=== PATIENT | female | born 1995 | race Caucasian/White ===

== ENCOUNTER → 2021-01-25 | Outpatient (CLI) | payer BC ==
--- NOTE | 2021-01-25 17:26 | US ---
EXAMINATION TYPE: Transabdominal DATE OF EXAM: 01/25/2021 3:04 PM COMPARISON: NONE CLINICAL HISTORY: Z36 confirm dates. Dates EXAM PERFORMED: Transabdominal (TA) EXAM MEASUREMENTS: GESTATIONAL AGE / DATING Physician Established: Not yet established Dates by LMP: (10 weeks/4 days) EDC: 08/19/2021 Dates by First Scan: No previous this is first scan Dates by Current Scan for: (11 weeks/1 days) EDC: 08/15/2021 MATERNAL ANATOMY Uterus: 12.1 x 7.7 x 4.8 cm Right Ovary: 2.9 x 1.6 x 1.4 cm Left Ovary: 2.9 x 1.5 x 1.5 cm Post CDS / Adnexa: no free fluid Presence of free fluid: no Presence of corpus luteal cyst: no Presence of subchorionic bleed: no GESTATION / SURVEY CRL: 4.2 cm (11 weeks/1 days) MSD: seen, not measured Yolk Sac (normal less than 6mm): not visualized Heart Rate: 172 bpm Rhythm: Normal IUP: Viable IUP Date of LMP: 11/12/2020 Beta HcG (if available): Not available at this time Live IUP measuring 11 weeks 1 day. IMPRESSION: Single intrauterine with an average ultrasound gestational age of 11 weeks and 1 day. Last menstrual period gestational age is 10 weeks and 4 days crown-rump length is 4.2 cm. heart rate is 172 bpm.
== END | disposition home or self-care (01) ==
LOC: RADUSWWP 14:44
PROVIDERS: ATTEND Obstetrics & Gynecology
DX: Z36.87 Encounter for antenatal screening for uncertain dates (principal)
CPT/HCPCS: 76801

== ENCOUNTER → 2022-06-12 | Outpatient (CLI) | payer BC ==
--- NOTE | 2022-06-12 15:07 | US ---
EXAMINATION TYPE: US thyroid st tissue head/neck DATE OF EXAM: 06/12/2022 COMPARISON: NONE CLINICAL HISTORY: E010. thyromegaly GLAND SIZE: Right Lobe: 5.6 x 2.0 x 2.4 cm Overall Parenchyma: heterogenous Left Lobe: 4.7 x1.5 x 1.8 cm Overall Parenchyma: heterogeneous Isthmus Thickness: 0.4 cm NODULES RIGHT: # of nodules measured on right: 1 1. 0.8 X 0.6 x 0.8 cm, lower , solid or almost completely solid, hyperechoic nodule, which is wider than tall, with smooth margins, without echogenic foci. Prior size: no prior LEFT: # of nodules measured on left: 0 ISTHMUS: # of nodules measured in the isthmus: 0 Bilateral neck scanned, no evidence of lymphadenopathy. IMPRESSION: 1. Thyromegaly correlate for thyroiditis. Single subcentimeter right thyroid nodule. 2017 ACR TI-RADS LEVEL: TR-RADS 3 - Mildly Suspicious: Follow if > 1.5 cm, FNA if > 2.5 cm *Highest TI-RADS level nodule reported
[2022-06-12 18:55] LABS: Basophils # (A) 0.05 X 10*3/uL (0.00-0.10); Basophils % (A) 0.6 %; Eosinophils # (A) 0.41 X 10*3/uL (0.04-0.35); Eosinophils % (A) 4.6 %; HCT 41.5 % (37.2-46.3); HGB 12.7 g/dL (12.0-15.0); Immature Grans, Automated 0.3 %; Lymphocytes # (A) 3.08 X 10*3/uL (0.90-5.00); Lymphocytes % (A) 34.6 %; MCHC 30.6 g/dL (32.0-37.0); MCV 81.9 fL (80.0-97.0); Mean Platelet Volume 10.7 fL (9.5-12.2); Monocytes % (A) 7.9 %; NRBC Per 100 WBC 0 /100 WBCS (0.0-0.0); Neutrophils # (A) 4.64 X 10*3/uL (1.80-7.70); Platelet Count 385 X 10*3/uL (140-440); RBC 5.07 X 10*6/uL (4.10-5.20); RDW 14.7 % (11.5-14.5); WBC 8.91 X 10*3/uL (4.50-10.00)
[2022-06-12 19:04] LABS: T4, Free (Free Thyroxine) 1.24 ng/dL (0.800-1.800)
== END | disposition home or self-care (01) ==
LOC: RADUSWWP 14:35
PROVIDERS: ATTEND Family Medicine
DX: E04.1 Nontoxic single thyroid nodule (principal); R79.89 Other specified abnormal findings of blood chemistry
CPT/HCPCS: 76536; 84439; 84443; 85025